=== PATIENT | female | born 2005 ===

== ENCOUNTER → 2025-01-07 09:16 | Outpatient (REF) | payer BC, SELFPAY | LOC: RAD 09:16 | PROVIDERS: ATTENDING PHYSICIAN Family Medicine | DX: R11.0 Nausea (principal); R19.7 Diarrhea, unspecified | CPT/HCPCS: 74246 ==

== ENCOUNTER 2025-01-28 06:30 | Day surgery (SDC) | payer BC, SELFPAY | END 2025-01-28 14:47 | disposition home or self-care (01) | LOC: GI 06:30 | PROVIDERS: ATTENDING PHYSICIAN Internal Medicine Gastroenterology | DX: R10.13 Epigastric pain (principal); R76.8 Other specified abnormal immunological findings in serum; K44.9 Diaphragmatic hernia without obstruction or gangrene; K31.89 Other diseases of stomach and duodenum | CPT/HCPCS: 43239; 88305; 88342 ==